=== PATIENT | female | born 1990 | race African-American/Black ===

== ENCOUNTER 2016-11-28 03:28 | Emergency (ER) | payer OTHER ==
[2016-11-28 03:46] VITALS: TEMP 98.7; BMI 37.1
--- NOTE | 2016-11-28 03:50 | PDOC ---
History of Present Illness - General History Source: Patient Exam Limitations: No Limitations - History of Present Illness Initial Comments: The patient is a 26 year old female, with no significant past medical history, who presents to the emergency department after ingesting an unknown amount of Methadone today. She notes that she took it because she wanted to go to sleep. She has a history of doing this in the past. She denies any suicidal or homicidal ideations. The patient denies chest pain, shortness of breath, headache and dizziness. Denies nausea, vomit and diarrhea. Allergies: None Past surgical history: None reported Social history: Methadone use <Matt Rader - Last Filed: 11/28/16 04:34> - General History Source: Patient <Matt Ingram - Last Filed: 11/28/16 19:33> - General Chief Complaint: Psychiatric Stated Complaint: INGESTION OF METHADONE Time Seen by Provider: 11/28/16 03:46 Past History <Matt Rader - Last Filed: 11/28/16 04:34> - Past Medical History LMP: 02/11/12 - Immunization History Immunization Up to Date: Yes - Social History Smoking History: Yes Smoking Status: Current every day smoker Number of Cigarettes Per Day: 4 <Matt Ingram - Last Filed: 11/28/16 19:33> - Past Medical History Allergies/Adverse Reactions: Allergies No Known Allergies Allergy (Verified 08/24/16 08:25) Home Medications: Ambulatory Orders Metformin HCl [Glucophage] 1,000 mg PO BID 11/28/16 *Review of Systems - Review of Systems Able to Perform ROS?: Yes Comments:: 11/28/16 03:53 GENERAL/CONSTITUTIONAL: No fever or chills. No weakness. HEAD, EYES, EARS, NOSE AND THROAT: No change in vision. No ear pain or discharge. No sore throat. CARDIOVASCULAR: No chest pain or shortness of breath RESPIRATORY: No cough, wheezing, or hemoptysis. GASTROINTESTINAL: No nausea, vomiting, diarrhea or constipation. NEUROLOGIC: No headache, vertigo, loss of consciousness, or change in strength/ sensation. ALLERGIC/IMMUNOLOGIC: No hives or skin allergy. <Matt Rader - Last Filed: 11/28/16 04:34> *Physical Exam - Vital Signs Last Vital Signs Temp Pulse Resp BP Pulse Ox 98.7 F 74 18 142/83 100 11/28/16 03:42 11/28/16 03:42 11/28/16 03:42 11/28/16 03:42 11/28/16 03:42 - Physical Exam Comments: 11/28/16 03:53 GENERAL: Awake, alert, and fully oriented, in no acute distress HEAD: No signs of trauma, normocephalic, atraumatic EYES: PERRLA, EOMI, sclera anicteric, conjunctiva clear ENT: Auricles normal inspection, hearing grossly normal, nares patent, oropharynx clear without exudates. Moist mucosa NECK: Normal ROM, supple, no lymphadenopathy, JVD, or masses LUNGS: No distress, speaks full sentences, clear to auscultation bilaterally HEART: Regular rate and rhythm, normal S1 and S2, no murmurs, rubs or gallops, peripheral pulses normal and equal bilaterally. ABDOMEN: Soft, nontender, normoactive bowel sounds. No guarding, no rebound. No masses EXTREMITIES: Normal inspection, Normal range of motion, no edema. No clubbing or cyanosis. NEUROLOGICAL: Cranial nerves II through XII grossly intact. Normal speech, normal gait, no focal sensorimotor deficits SKIN: +Multiple healed abrasions on her left arm. Warm, Dry, normal turgor, no rashes or lesions noted. <Matt Rader - Last Filed: 11/28/16 04:34> - Vital Signs Last Vital Signs Temp Pulse Resp BP Pulse Ox 98.7 F 74 18 142/83 100 11/28/16 03:42 11/28/16 03:42 11/28/16 03:42 11/28/16 03:42 11/28/16 03:42 <Matt Ingram - Last Filed: 11/28/16 19:33> Plan - Order(s) Order(s): Orders Medication Instructions Recorded Metformin HCl [Glucophage] 1,000 mg PO BID 11/28/16 - Laboratory CBC & Chemistry Diagram: 11/28/16 04:00 11/28/16 04:00 <Matt Rader - Last Filed: 11/28/16 04:34> - Order(s) Order(s): Orders Medication Instructions Recorded Metformin HCl [Glucophage] 1,000 mg PO BID 11/28/16 - Laboratory CBC & Chemistry Diagram: 11/28/16 04:00 11/28/16 04:00 <Matt Ingram - Last Filed: 11/28/16 19:33> *DC/Admit/Observation/Transfer - Attestations Scribe Attestion: 11/28/16 03:53 Documentation prepared by Matt Rader, acting as hospitalist medical director for Matt Ingram DO <Matt Rader - Last Filed: 11/28/16 04:34> - Discharge Dispostion Admit: No <Matt Ingram - Last Filed: 11/28/16 19:33> Diagnosis at time of Disposition: Ingestion of unknown drug Qualifiers: Encounter type: initial encounter Injury intent: accidental or unintentional Qualified Code(s): T50.901A - Poisoning by unspecified drugs, medicaments and biological substances, accidental (unintentional), initial encounter - Discharge Dispostion Disposition: HOME Condition at time of disposition: Improved - Referrals Referrals: [facility] [Provider Group] - Patient Instructions Additional Instructions: Return to the emergency department immediately with ANY new, persistent or worsening symptoms. Do not take any medication that is not yours. You MUST call and follow up with your doctor tomorrow for further evaluation of your symptoms. Results were discussed with you. Please make sure your doctor reviews the results of your emergency evaluation. Print Language: ROMANSH
[2016-11-28 04:08] LABS: BASOPHIL 0.5 % (0-2.0); EOSINOPHIL 0.9 % (0-4.5); MCH 27.9 pg (25.7-33.7); MCHC 32.2 g/dl (32.0-36.0); MEAN CELL VOLUME 86.8 fl (80-96); MEAN PLT VOLUME 7.6 fl (7.5-11.1); NEUTROPHILS 59.8 % (42.8-82.8); PLATELET COUNT 346 K/MM3 (134-434); RDW 12.9 % (11.6-15.6); WHITE BLOOD COUNT 14.1 K/mm3 (4.0-10.0)
[2016-11-28 04:24] LABS: INR 1.15 (0.82-1.09); PROTHROMBIN TIME (PATIENT) 12.7 SEC (9.98-11.88)
[2016-11-28 04:32] LABS: ALK PHOS 126 U/L (45-117); ANION GAP 9 (8-16); BILIRUBIN,TOTAL 0.5 mg/dL (0.2-1.0); CALCIUM 9.2 mg/dL (8.5-10.1); CO2 26 mmol/L (21-32); CREATININE 0.8 mg/dL (0.55-1.02); GLUCOSE,RANDOM 84 mg/dL (74-106); SGOT/AST 21 U/L (15-37); SGPT/ALT 31 U/L (12-78); TOT PROT 7.7 g/dl (6.4-8.2)
[2016-11-28 04:35] LABS: ALCOHOL < 5.0 mg/dl (0-5)
[2016-11-28] MEDS ORDERED: LORAZEPAM CARPU-JECT 2 MG/ML DISP.SYRIN ONE (04:46)
[2016-11-28] MEDS ORDERED: LORazepam 1 MG TABLET PO ONE (04:50)
--- NOTE | 2016-11-28 07:15 | PDOC ---
[id number] 100 11/28/16 03:42 11/28/16 03:42 11/28/16 03:42 11/28/16 03:42 11/28/16 03:42 ED Treatment Course - LABORATORY CBC & Chemistry Diagram: 11/28/16 04:00 11/28/16 04:00 - ADDITIONAL ORDERS Additional order review: Laboratory Results 11/28/16 11/28/16 11/28/16 04:00 04:00 04:00 INR Sodium 141 Potassium 3.3 L Chloride 106 Carbon Dioxide 26 Anion Gap 9 BUN 14 Creatinine 0.8 Creat Clearance w eGFR > 60 Random Glucose 84 Calcium 9.2 Magnesium 2.0 Total Bilirubin 0.5 AST 21 ALT 31 Alkaline Phosphatase 126 H Total Protein 7.7 Albumin 4.0 Serum , Qual Negative Alcohol, Quantitative < 5.0 11/28/16 04:00 INR 1.15 H Sodium Potassium Chloride Carbon Dioxide Anion Gap BUN Creatinine Creat Clearance w eGFR Random Glucose Calcium Magnesium Total Bilirubin AST ALT Alkaline Phosphatase Total Protein Albumin Serum , Qual Alcohol, Quantitative 11/28/16 04:00 RBC 4.50 MCV 86.8 MCHC 32.2 RDW 12.9 MPV 7.6 Neutrophils % 59.8 Lymphocytes % 32.0 Monocytes % 6.8 Eosinophils % 0.9 Basophils % 0.5 - Medications Given in the ED: ED Medications Discontinued Medications Generic Name Dose Route Start Last Admin Trade Name Freq PRN Reason Stop Dose Admin Lorazepam 2 mg 11/28/16 04:50 11/28/16 06:18 Ativan - PO 11/28/16 04:51 Not Given ONCE ONE Medical Decision Making - Medical Decision Making 11/28/16 07:18 Pt signed out to me from Dr. Bhakta 26y F no pmhx brought in by for ingestion of 3x2 mg <?> of methadone. Per RN, pt had recent stressors (lost mom, cheating, 2 jobs, school/ classes) and took it 'to sleep' as she has not been able to get good sleep. The pt denies any SI/HI, and states she has never tried to hurt herself before. Pt does have a history of cutting. Pt was agitated earlier in the evening, and was ordered sedation meds, however pt did NOT receive them. Dr. Bhakta signed pt out to me to reeval and consider psych consultation. awaiting tox. 11/28/16 08:23 Pts is also here, states that he called EMS because he was concerned that she took some of her mothers methadone, and wanted to get her a medical evaluation. The pt is currently awake, arousable, AOx3 and cooperative. States she wants to go home. Clinically I do not think that the person needs an emergent psych consult as patient is coherent, logical, and is not exhibiting any signs of self harm. Case discussed in detail with [employer] SOFTWARE ENGINEER Filemon Liu (Psych) - agrees that patient is safe discharge. awiating utox and salycilate/acetaminophen 11/28/16 09:08 utox reviewed neg salycilate and acetaminophen pt currently calm, again denies she anderson any intention to hurt herself - states she took the meds to help her sleep. will d/c the pt with pmd fu instructoins not to take meds if she they are not hers. will d/c the pt into care of her . return precautions were discussed I discussed the physical exam findings, ancillary test results and final diagnoses with the patient. I answered all of the patient's questions. The patient was satisfied with the care received and felt comfortable with the discharge plan and treatment plan. The patient will call their primary care physician within 24 hours to arrange follow-up and will return to the Emergency Department with any new, persistent or worsening symptoms. *DC/Admit/Observation/Transfer Diagnosis at time of Disposition: Ingestion of unknown drug Qualifiers: Encounter type: initial encounter Injury intent: accidental or unintentional Qualified Code(s): T50.901A - Poisoning by unspecified drugs, medicaments and biological substances, accidental (unintentional), initial encounter - Discharge Dispostion Disposition: HOME Condition at time of disposition: Improved Admit: No - Referrals Referrals: [facility] [Provider Group] - Patient Instructions Additional Instructions: Return to the emergency department immediately with ANY new, persistent or worsening symptoms. Do not take any medication that is not yours. You MUST call and follow up with your doctor tomorrow for further evaluation of your symptoms. Results were discussed with you. Please make sure your doctor reviews the results of your emergency evaluation. Print Language: YORUBA
[2016-11-28 07:54] VITALS: BP 133/66; PULSE 62
[2016-11-28 08:23] LABS: SALICYLATE < 4.0 mg/dl (0.0-30.0)
[2016-11-28 08:38] LABS: URINE MARIJUANA THC NEGATIVE ng/ml (CUTOFF=50)
[2016-11-28 09:00] LABS: URINE APPEARANCE CLEAR; URINE BILIRUBIN NEGATIVE (NEGATIVE); URINE COLOR LT. YELLOW; URINE GLUCOSE (UA) NEGATIVE (NEGATIVE); URINE KETONE NEGATIVE (NEGATIVE); URINE LEUK ESTERASE NEGATIVE (NEGATIVE); URINE NITRITE NEGATIVE (NEGATIVE); URINE PROTEIN TRACE (NEGATIVE); URINE UROBILINOGEN 0.2 E.U/dl E.U./dl (0.2-1.0)
[2016-11-28 09:01] LABS: URINE BLOOD TRACE (NEGATIVE)
[2016-11-28] MEDS ORDERED: POTASSIUM CHLORIDE TABS 20 MEQ TABLET.ER (FP) PO ONE ×2 (09:08→09:15)
[2016-11-28 09:15] LABS: URINE MUCUS MANY; URINE RBC 1 /hpf (0-3); URINE WBC 4 /hpf (3-5)
--- NOTE | 2016-11-28 18:14 | EKG ---
Test Reason : Blood Pressure : / mmHG Vent. Rate : 072 BPM Atrial Rate : 072 BPM P-R Int : 156 ms QRS Dur : 086 ms QT Int : 382 ms P-R-T Axes : 031 019 011 degrees QTc Int : 418 ms SINUS RHYTHM WITH MARKED SINUS ARRHYTHMIA POSSIBLE LEFT ATRIAL ENLARGEMENT LEFT VENTRICULAR HYPERTROPHY ABNORMAL ECG NO PREVIOUS ECGS AVAILABLE Confirmed by KYUNG CHRIS MD ([id number]) on 11/28/2016 6:14:28 PM Referred By: Confirmed By:KYUNG CHRIS MD
== END 2016-11-28 09:23 | disposition home or self-care (01) ==
LOC: JER 03:28
DX: T40.3X1A Poisoning by methadone, accidental (unintentional), initial encounter (principal); Y92.038 Other place in apartment as the place of occurrence of the external cause
CPT/HCPCS: 36415; 80053; 80307; 81003; 81015; 83735; 84703; 85025; 85610; 93005; 93010; 99283-25

== ENCOUNTER 2017-12-25 17:40 | Emergency (ER) | payer SELFPAY ==
[2017-12-25 17:59] VITALS: BP 164/85; PULSE 97; TEMP 98.3; BMI 38.7
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
== END 2017-12-25 19:58 | disposition home or self-care (01) ==
LOC: JERFT 17:40
DX: S13.4XXD Sprain of ligaments of cervical spine, subsequent encounter (principal); V43.52XD Car driver injured in collision with other type car in traffic accident, subsequent encounter; W22.11XD Striking against or struck by driver side automobile airbag, subsequent encounter
CPT/HCPCS: 84703; 99281-25

== ENCOUNTER 2021-01-13 07:33 | Emergency (ER) | payer SELFPAY ==
[2021-01-13 07:43] VITALS: BMI 37.5
[2021-01-13 10:36] LABS: BASO % 0.3 % (0-2.0); EOS % 1.7 % (0-4.5); HEMOGLOBIN 13.6 GM/dL (10.7-15.3); LYMPH % 34.8 % (8-40); MCH 29.9 pg (25.7-33.7); MEAN CELL VOLUME 87.9 fl (80-96); MEAN PLT VOLUME 7.7 fl (7.5-11.1); MONO % 6.3 % (3.8-10.2); NEUT % 56.9 % (42.8-82.8); PLATELET COUNT 314 K/MM3 (134-434); RBC 4.55 M/mm3 (3.60-5.2); RDW 13.1 % (11.6-15.6); WHITE BLOOD COUNT 12.1 K/mm3 (4.0-10.0)
[2021-01-13 10:37] LABS: HCG,QUALITATIVE URINE Negative; PH,URINE 6.5 (5.0-8.0); URINE APPEARANCE CLEAR; URINE BILIRUBIN NEGATIVE (NEGATIVE); URINE COLOR YELLOW; URINE GLUCOSE (UA) NEGATIVE (NEGATIVE); URINE KETONE NEGATIVE (NEGATIVE); URINE LEUK ESTERASE NEGATIVE (NEGATIVE); URINE NITRITE NEGATIVE (NEGATIVE); URINE PROTEIN NEGATIVE (NEGATIVE)
[2021-01-13 10:56] LABS: CHLORIDE 106 mmol/L (98-107); POTASSIUM 4.1 mmol/L (3.5-5.1); SODIUM 138 mmol/L (136-145)
[2021-01-13 10:58] LABS: ALBUMIN 3.8 g/dl (3.4-5.0); ANION GAP 5 MMOL/L (8-16); BLOOD UREA NITROGEN 13.1 mg/dL (7-18); CALCIUM 9.2 mg/dL (8.5-10.1); CO2 27 mmol/L (21-32)
[2021-01-13 10:59] LABS: GLUCOSE,RANDOM 82 mg/dL (74-106)
[2021-01-13 11:01] LABS: SGOT/AST 18 U/L (15-37); SGPT/ALT 34 U/L (13-61)
[2021-01-13 11:02] LABS: CREATININE 0.7 mg/dL (0.55-1.3)
[2021-01-13 11:03] LABS: BILIRUBIN,TOTAL 0.6 mg/dL (0.2-1); TOT PROT 7.4 g/dl (6.4-8.2)
[2021-01-13 11:04] LABS: ALK PHOS 122 U/L (45-117)
[2021-01-13] MEDS ORDERED: AZITHROMYCIN 500 MG TABLET PO ONE (12:33)
[2021-01-13] MEDS ORDERED: IBUPROFEN 600 MG TABLET (FP) PO ONE ×2 (13:17→13:30)
[2021-01-13] MEDS ORDERED: AZITHROMYCIN 250 MG TABLET ONE (13:31)
[2021-01-13 13:47] VITALS: BP 128/72; PULSE 82; TEMP 98.4
== END 2021-01-13 13:45 | disposition home or self-care (01) ==
LOC: JER 07:33
DX: N83.201 Unspecified ovarian cyst, right side (principal)
CPT/HCPCS: 36415; 76830-TC; 80053; 81003; 84702; 84703; 85025; 87070; 87086; 87205; 87491; 87591; 99284-25